=== PATIENT | female | born 1965 | race Two or more races ===

== ENCOUNTER 2018-10-22 18:54 | Emergency (ER) | payer SELFPAY ==
[~2018-10-22] VITALS: Ht 165.1 cm; Wt 74.8 kg
[2018-10-22 19:19] VITALS: BP 153/85
== END 2018-10-22 23:42 | disposition home or self-care (01) ==
LOC: EDBD 18:54 → ER 18:58
DX: M62.838 Other muscle spasm (principal); V43.62XA Car passenger injured in collision with other type car in traffic accident, initial encounter; Y93.89 Activity, other specified; Y99.8 Other external cause status; Y92.410 Unspecified street and highway as the place of occurrence of the external cause
CPT/HCPCS: 72040